=== PATIENT | female | born 1945 | race Caucasian/White ===

== ENCOUNTER → 2019-01-28 13:13 | Outpatient (CLI) | payer MEDICARE, BC, SELFPAY ==
--- NOTE | 2019-01-28 13:18 | CT_ITS ---
CT abdomen pelvis wo/w con CLINICAL INDICATION: Recurrent urinary tract infections ITS.REASON: chronic UTI ORDERING PHYSICIAN: Gomez Zapien MD PATIENT AGE: 73 years COMPARISON: 04/02/2015 TECHNIQUE: Axial images obtained without and with contrast with sagittal and coronal reformats. All CT scans at the facility use one or more dose reduction, viz: automated exposure control, ma/kV adjustment per patient size (including targeted exams where dose is matched to indication, i.e. head), or iterative reconstruction technique. PROCEDURE: Oral Contrast: None IV Contrast: 75 mL's Optiray 350. FINDINGS: Lower thorax: No acute finding The liver, gallbladder, spleen, adrenal glands, and pancreas have an unremarkable appearance. No renal or ureteral calculi. No hydronephrosis or renal mass. The urinary bladder has an unremarkable appearance. No evidence of appendicitis, intestinal obstruction, or free air or diverticulitis. There is a mild amount of retained colonic feces. No pelvic mass or abnormal fluid collection or focal inflammatory changes. There is a small central pelvic calcification just posterior to the symphysis pubis which is nonspecific and may be due to phlebolith. No acute bony findings. IMPRESSION: Unremarkable CT abdomen pelvis, No acute abdominal pelvic findings. No renal or ureteral calculi
[2019-01-28 13:44] LABS: Blood Urea Nitrogen 12 mg/dL (7-18); Creatinine,Serum 1.03 mg/dL (0.55-1.02); Estimated Glomerular Filt Rate 53 ml/min (>60); GFR (African American) 64 ML/MIN (>60)
== END ==
PROVIDERS: PCP Family Medicine; Visit Provider Urology
DX: N30.20 Other chronic cystitis without hematuria (principal)
CPT/HCPCS: 36415; 74178; 82565; 84520; Q9967

== ENCOUNTER → 2019-10-10 08:58 | Outpatient (CLI) | payer MEDICARE, BC, SELFPAY ==
--- NOTE | 2019-10-10 09:00 | US_ITS ---
PROCEDURE: US BREAST LT COMPLETE CLINICAL INDICATION: LT BREAST LUMP COMPARISON: No exams were available for comparison FINDINGS: There is a palpable nodule reported at 6 o'clock. Recent mammograms are at an outside institution and unavailable for comparison. There is a small cyst at 12 o'clock at 3 mm. The remaining breast has an unremarkable appearance. Specifically, no cystic or solid lesions are present at the area of palpable concern. IMPRESSION: Small cyst at 12 o'clock otherwise negative left breast ultrasound. If there is indeed a palpable nodule then, would recommend mammographic correlation Dictated by: Maulik Kay MD 10/10/2019 10:07 Electronically signed by Maulik Kay MD in [place] 10/10/2019 10:07
== END ==
PROVIDERS: PCP Family Medicine; Visit Provider Nurse Practitioner Family
DX: D24.2 Benign neoplasm of left breast (principal)
CPT/HCPCS: 76641

== ENCOUNTER → 2019-11-05 14:17 | Outpatient (CLI) | payer MEDICARE, BC, SELFPAY ==
--- NOTE | 2019-11-05 14:19 | MM_ITS ---
PROCEDURE: MM DIG MAMM DX UNILAT LT CAD CLINICAL INDICATION: LT BREAST LUMP COMPARISON: US BREAST LT COMPLETE from 10/10/2019 TECHNIQUE: Standard images performed along with spot compression views FINDINGS: The report is delayed waiting on old films for comparison which are not made available as of the reading date. Patient reports a palpable abnormality at the 6 o'clock region of the left breast. There is average fibroglandular tissue. No malignant appearing mass or malignant-appearing microcalcification is evident. There are benign-appearing calcifications. Specifically, no discrete mass evident at the area of palpable concern. A negative mammogram and negative ultrasound does not exclude the possibility of malignancy. Any true palpable nodule should be managed on a clinical basis IMPRESSION: No evidence of malignancy. Benign calcifications BI-RAD Category: 2 Benign Finding(s) FOLLOW-UP: 1YR 1 Year Follow-up Please correlate with physical exam. Palpable nodule should be managed on a clinical basis. (A letter has been sent to the patient regarding results of the study.) Dictated by: Maulik Kay MD 11/13/2019 11:10 Electronically signed by Maulik Kay MD in [place] 11/13/2019 11:10
== END ==
PROVIDERS: PCP Family Medicine; Visit Provider Family Medicine
DX: N63.23 Unspecified lump in the left breast, lower outer quadrant
CPT/HCPCS: 77065

== ENCOUNTER → 2020-11-11 15:40 | Outpatient (CLI) | payer MEDICARE, BC, SELFPAY ==
--- NOTE | 2020-11-11 15:43 | MM_ITS ---
PROCEDURE: MM DIG SCREENING MAMM BI W/CAD Referring Doctor: Sada Bejarano Patient Age:74Y CLINICAL INDICATION: SCREENING No hormonesno no complaints negative family history COMPARISON: MG MG SCREENING MAMMOGRAM from 12/18/2008 MG MG SCREENING MAMMOGRAM from 01/13/2011 MG MG SCREENING MAMMOGRAM from 01/19/2012 MG MG SCREENING MAMMOGRAM from 02/07/2013 MG MG SCREENING MAMMOGRAM from 02/06/2014 MG MG SCREENING MAMMOGRAM from 02/08/2015 MG MG SCREENING MAMMOGRAM from 02/11/2016 MG MG SCREENING MAMMOGRAM from 02/12/2017 MG MG SCREENING WAYLON MAMMOGRAM from 02/15/2018 MG MG SCREENING WAYLON MAMMOGRAM from 02/21/2019 US US BREAST LT COMPLETE from 10/10/2019 MG MM DIG MAMM DX UNILAT LT CAD from 11/05/2019 TECHNIQUE: Standard CC and MLO images were obtained. R2 CAD reviewed. Bilateral digital breast tomosynthesis included. FINDINGS: Moderate breast density,. Mild asymmetry. No suspicious calcifications Left breast-suggestion/question subtle architectural changes the superior breast 11 o'clock position. This may reflect old scar but I would suggest additional spot views and ultrasound to further evaluate since it is more evident than on 2016 2017 studies.. (Cc, and MLO spot views along with full 90 degree left breast recommended) I would note that an ultrasound spot views right breast were performed October 2019 to evaluate an palpable area at the medial breast of but but this palpable areas seem to be inferior to the current region.. Right breast. No new areas of concern Follow-up 1 year on right IMPRESSION: 1. Left breast. Although most likely stable I would question minor area of architectural irregularity at 11o'clock region of left breast. Could reflect area minimal old scarring noting similar area seen previous studies , But warrants additional views since it is very slightly more evident today. Recommend ultrasound and spot views left breast 2..Right breast-no new areas of concern follow-up 1 year BI-RAD Category: 0 Need Additional Imaging Evaluation FOLLOW-UP: IMM Immediate Follow-up Recommended (A letter has been sent to the patient regarding results of the study.) Dictated by: Abhi Beltran MD 11/15/2020 10:04 Abhi Beltran MD in [place] 11/15/2020 10:05
== END ==
PROVIDERS: PCP Family Medicine; Visit Provider Family Medicine
DX: Z12.31 Encounter for screening mammogram for malignant neoplasm of breast (principal)
CPT/HCPCS: 77063; 77067

== ENCOUNTER → 2020-12-01 13:40 | Outpatient (CLI) | payer MEDICARE, BC, SELFPAY ==
--- NOTE | 2020-12-01 13:52 | MM_ITS ---
PROCEDURE: MM DIG MAMM DX UNILAT LT CAD Digital Breast Tomosynthesis Included CLINICAL INDICATION: ABN MAMM COMPARISON: MG MG SCREENING WAYLON MAMMOGRAM from 02/21/2019 MG MM DIG MAMM DX UNILAT LT CAD from 11/05/2019 MG MM DIG SCREENING MAMM BI W/CAD from 11/11/2020 US US BREAST LT COMPLETE from 12/01/2020 TECHNIQUE: Standard CC and MLO images and 3D Tomosynthesis was obtained. R2 CAD reviewed. One CC views were obtained along with a 90 degree lateral view FINDINGS: The additional views lessen concern of the questionable architectural distortion left breast. This appears to be simply an area of asymmetric glandular elements with no suspicious characteristics. Ultrasound performed the same date showed a small solid nodular lesion near the nipple probably a fibroadenoma. Again noted are 2 benign-appearing microcalcifications inferior portion of the breast. IMPRESSION: Essentially negative problem solving views and in addition there is no definite ultrasound correlation of a suspicious abnormality. BI-RAD Category: 2 Benign Finding(s) FOLLOW-UP: 1YR 1 Year Follow-up (A letter has been sent to the patient regarding results of the study.) Dictated by: Dr. Ephraim Moses MD 12/14/2020 08:01 Dr. Ephraim Moses MD in [place] 12/14/2020 08:01
--- NOTE | 2020-12-01 13:53 | US_ITS ---
PROCEDURE: US BREAST LT COMPLETE CLINICAL INDICATION: ABN MAMM COMPARISON: US US BREAST LT COMPLETE from 10/10/2019 FINDINGS: Diffuse slightly heterogenic echogenicity is seen throughout the breast. There is a small solid lesion with homogeneous echogenicity measuring 0.5 x 0.2 cm 7 o'clock position near the nipple and likely a small fibroadenoma. There is a normal appearing node in the axilla. IMPRESSION: Essentially unremarkable ultrasound with no correlation to the suspected architectural distortion and recommend the patient continue with yearly screening mammography Dictated by: Dr. Ephraim Moses MD 12/14/2020 08:03 Dr. Ephraim Moses MD in [place] 12/14/2020 08:03
== END ==
PROVIDERS: PCP Family Medicine; Visit Provider Family Medicine
DX: R92.8 Other abnormal and inconclusive findings on diagnostic imaging of breast (principal)
CPT/HCPCS: 76641; 77061; 77065; G0279

== ENCOUNTER → 2021-12-05 10:12 | Outpatient (CLI) | payer MEDICARE, BC, SELFPAY ==
--- NOTE | 2021-12-05 10:15 | MM_ITS ---
PROCEDURE INFORMATION: Exam: MG Bilateral Screening 3D Mammography Exam date and time: 12/05/2021 10:15 AM Age: 75 years old Clinical indication: Encounter for screening mammogram for malignant neoplasm of breast TECHNIQUE: Imaging protocol: Bilateral screening tomosynthesis and 2D mammography including computer-aided detection (CAD) when performed. COMPARISON: 1. MG MM DIG MAMM DX UNILAT LT CAD 12/01/2020 1:58 PM 2. MG MM DIG SCREENING MAMM BI W/CAD 11/11/2020 3:51 PM 3. MG MM DIG MAMM DX UNILAT LT CAD 11/05/2019 2:42 PM FINDINGS: MAMMOGRAPHY: Breast composition: There are scattered areas of fibroglandular density. Mass: No suspicious masses. Architectural distortion: No suspicious distortion. Calcifications: No suspicious calcifications. Asymmetric density: None. Skin thickening: None. Axillary adenopathy: None. IMPRESSION: 1. No mammographic evidence of malignancy. Annual screening is recommended unless otherwise clinically indicated. ASSESSMENT: BI-RADS Category 2: Benign
== END ==
PROVIDERS: PCP Family Medicine; Visit Provider Family Medicine
DX: Z12.31 Encounter for screening mammogram for malignant neoplasm of breast (principal)
CPT/HCPCS: 77063; 77067

== ENCOUNTER → 2023-01-16 06:12 | Outpatient (CLI) | payer MEDICARE, BC, SELFPAY ==
--- NOTE | 2023-01-16 | CA_ITS ---
APPROVED REPORT Exam: Pharmacologic Technologist: ,, Ht: 5 ft 3 in Wt: 153 lbs BSA: 1.73 m2 HR: 63 bpm BP: 173/71 mmHg Medical History Medications: Amlodipine,,,,, Levothyroxine,,,,, Aspirin,,,,, Atenolol,,,,, Simvastatin,,,,, Losartan,,,,, Calcium,,,,, Norvasc,,,,, Protonix,,,,, Carbonate,,,,, Stress Test Details Test: LEXISCAN Reason for pharmacologic stress test: physical limitation. HR Resting HR: 75 bpm Max Heart Rate (APMHR): 143.045883 bpm Max HR Achieved: 96 bpm Target HR (85% APMHR): 121.733910 bpm % of APMHR: 67.13 Recovery HR: 82 bpm BP Resting BP: 173.0/71.0 mmHg Max BP: 173.0/71.0 mmHg Recovery BP: 150.0/65.0 mmHg ECG Resting ECG: NSR Clinical Reason for Termination: Completed Protocol Exercise duration: 04:01 min Highest Stage Achieved: Exercise capacity: 1.0 METs Stress ECG Conclusion Symptoms: none Arrhythmias/Ectopy: none ST-T Changes: <1.5mm ST Segment changes Conclusion: Non-Diagnostic Test Summary REST . . . . . . . Resting REST 00:36 . . 75 . 173/ 71 . . Stage 1 01:00 . . 89 . . . . Stage 2 01:00 . . 94 . 152/ 70 . . Stage 3 01:00 . . 92 . 148/ 66 . . Stage 4 01:00 . . 88 . 141/ 62 . . Stage 4 01:01 . . 87 . 141/ 62 . Stop exercise at 04:01 RECOVERY 01:00 . . 83 . . . . RECOVERY 02:00 . . 82 . 150/ 65 . . RECOVERY 02:04 . . 82 . 150/ 65 . . Electronically signed by : Tj Awan MD 01/16/2023 21:16:18
--- NOTE | 2023-01-16 06:12 | NM_ITS ---
APPROVED REPORT Exam: Nuclear Stress Test Indication: Chest pain, SOB, HTN, High cholesterol Patient Location: Outpatient Stress Tech: Josie Toro [place] Tech:Patt Walker, ARRT, RT (R)(N) Ht: 5 ft 3 in Wt: 150 lbs Bra Size: 40C HR: 75 bpm BP: 173/71 mmHg BSA: 1.71 m2 TID: 1.20 BMI: 26.5 History: Chest pain, SOB, HTN, High cholesterol Procedure: Patient received 0.4 mg of intravenous Lexiscan, resting heart rate 75 bpm, resting blood pressure 173/71 mmHg, with Lexiscan maximum heart rate achieved was 96 bpm which is Less than 85 % of the maximum predicted heart rate and blood pressure was 173/71 mmHg. With Lexiscan, patient denied any complaint of chest pain. Electrocardiogram Resting electrocardiogram showed sinus rhythm with Lexiscan there is less than 1.[address] segment depression noted from the baseline EKG. The EKG portion of the Lexiscan is nondiagnostic. Cardiac Stress and Resting SPECT Images: Cardiac Stress and Resting SPECT images were obtained using technetium 99m Myoview 29.6 mCi stress and 10.28 mCi at rest. Gated SPECT analysis of segmental wall motion and calculation of the ejection fraction also done. Prone images were also obtained. Cardiac stress and rest respectively show uniform myocardial activity without segmental perfusion abnormality, computer derived ejection fraction is 53% with no regional wall motion abnormality, right ventricle is normal size and contractility. Conclusion: 1. The EKG portion of the Lexiscan is nondiagnostic. 2. No scintigraphic evidence of reversible ischemia seen, computer derived ejection fraction 53% with no regional wall motion abnormality, right ventricle is normal size and contractility. 3. Normal Lexiscan Myoview study. Electronically signed by : Tj Awan MD 01/16/2023 21:25:24
--- NOTE | 2023-01-16 06:12 | CA_ITS ---
APPROVED REPORT EXAM: Comprehensive 2D, Doppler, and color-flow Echocardiogram Padded Products Inspector Trimmer: Erika Viramontes, RCS, RVS Ht: 5 ft 3 in Wt: 153lbs BSA: 1.73 BP: 181/73 mmHg Indications: CP, HLD, HTN, Hypothyroidism 2D Dimensions IVSd 0.74 cm LVEF (Visual) 54.40 % PWd 0.99 cm LA Volume 46.90 mL LVDd 4.88 cm LA Volume Index 27.10 mL/m2 (M/F) 16-34 LVDs 3.50 cm Aortic Root 2.55 cm Left Atrium 3.54 cm LVOT 1.68 cm (M/F) 1.5-2.5 M-Mode Dimensions RVDd 1.71 cm (0.9-2.6) LA Diam 3.12 cm (1.9-4.0) LVDd 4.71 cm (3.5-5.7) Ao Diam 2.73 cm (2.0-3.7) LVDs 3.14 cm (3.5-5.7) IVSd 1.07 cm (0.6-1.1) PWd 0.71 cm (0.6-1.1) EF (Teich) 62.00% EPSs 0.57 cm FS 33.30% EDV (Teich) 102.90 mL TAPSE 2.29 (<1.7) ESV (Teich) 39.10 mL LV Diastology E Decel Time 207.00 (160-240 msec) E/A Ratio 1.19 MED E' 8.70 (< 7 cm/sec) MED A' 8.20 cm/s E'/MED E' Ratio 10.97 (>14) LAT E' 5.60 (<10 cm/sec) LAT A' 8.30 cm/s E/LAT E' Ratio 17.04 (>14) Aortic Valve LVOT Max 107.00 (70-110 cm/s) LVOT VTI 24.14 cm AoV Peak Conor. 138.00 (50-130 cm/s) AO Peak GR. 7.70 mmHg AO Mean GR. 3.80 (<5 mmHg) AO VTI 32.14 (18-25 cm) MARSHA (VTI) 1.66 (2.5-4.5 cm2) Mitral Valve MV A Velocity 80.00 (40-130 cm/s) E/A Ratio 1.19 MV Decel. Time 207.00 (160-240 ms) MV PHT 50.00 ms Pulmonary Valve PV Peak Velocity 93.00 (50-150 cm/s) Tricuspid Valve TR P. Velocity 279.00 cm/s RAP Estimate 10.00 mmHg RVSP 41.10 mmHg Left Ventricle Left atrium is mildly enlarged, left ventricle is normal size mild qualitative concentric left ventricular hypertrophy, estimated ejection fraction 55% with no regional wall motion abnormality, diastolic parameters are inconclusive. Right Ventricle Right atrium and right ventricular normal size and contractility. Aortic Valve Aortic valve is minimally thickened and fibrosed there is no aortic stenosis or significant aortic insufficiency. Mitral Valve Mitral valve is grossly normal, there is trace mitral regurgitation. Tricuspid Valve Tricuspid valve is grossly normal, there is trace tricuspid regurgitation, calculated right ventricular systolic pressure is 38 mmHg. Pulmonic Valve Pulmonic valve is poorly visualized. Great Vessels Aortic root is normal size. Inferior vena cava is normal size with normal inspiratory collapse. Pericardium No significant pericardial effusion noted. Conclusion 1. Mildly enlarged left atrium, normal left ventricular size, estimated ejection fraction 55% with no regional wall motion abnormality, diastolic parameters are inconclusive. 2. Trace mitral and tricuspid regurgitation, calculated right ventricular systolic pressure is 38 mmHg. 3. No significant pericardial effusion. 4. Inferior vena cava is normal size with normal inspiratory collapse. Electronically signed by : Tj Awan MD 01/17/2023 06:09:29
--- NOTE | 2023-01-16 08:20 | HMH.ITSHM ---
Current Home Medications as stated by this patient Shana Dick or sales and service representative. []SIMVASTATIN PANTOPRAZOLE LOSARTAN LEVOTHYROXINE CALCIUM ATENOLOL AMLODIPINE
== END ==
PROVIDERS: PCP Family Medicine; Visit Provider Physician Assistant
DX: R07.89 Other chest pain (principal); R94.31 Abnormal electrocardiogram [ECG] [EKG]
CPT/HCPCS: 78452; 93017; 93306; A9502; J2785

== ENCOUNTER → 2023-02-20 10:16 | Outpatient (CLI) | payer MEDICARE, BC, SELFPAY ==
--- NOTE | 2023-02-20 10:24 | MM_ITS ---
PROCEDURE INFORMATION: Exam: MG Bilateral Screening 3D Mammography Exam date and time: 02/20/2023 10:20 AM Age: 77 years old Clinical indication: Screening. No family history of breast cancer. TECHNIQUE: Imaging protocol: Bilateral Screening tomosynthesis and 2D mammography including computer-aided detection (CAD) when performed. COMPARISON: 1. MG MM DIG SCREENING MAMM BI W/CAD 12/05/2021 10:15 AM 2. MG MM DIG MAMM DX UNILAT LT CAD 12/01/2020 1:58 PM 3. MG MM DIG SCREENING MAMM BI W/CAD 11/11/2020 3:51 PM 4. MG MM DIG MAMM DX UNILAT LT CAD 11/05/2019 2:42 PM FINDINGS: MAMMOGRAPHY: Breast composition: There are scattered areas of fibroglandular density. Mass: No suspicious mass. Architectural distortion: None. Calcifications: No suspicious calcifications. Asymmetric density: None. Skin thickening: None. Axillary adenopathy: None. IMPRESSION: No mammographic evidence of malignancy. Annual screening is recommended unless otherwise clinically indicated. ASSESSMENT: BI-RADS Category 1: Negative
== END ==
PROVIDERS: PCP Family Medicine; Visit Provider Family Medicine
DX: Z12.31 Encounter for screening mammogram for malignant neoplasm of breast (principal)
CPT/HCPCS: 77063; 77067

== ENCOUNTER 2023-11-27 08:28 | Outpatient (CLI) | payer MEDICARE, BC, SELFPAY ==
--- NOTE | 2023-11-27 08:35 | CT_ITS ---
FINAL REPORT TECHNIQUE: Axial CT images of the abdomen were obtained with IV contrast only. Coronal and sagittal reformatted images were also obtained. This study was performed with techniques to keep radiation doses as low as reasonably achievable (ALARA). Individualized dose reduction techniques using automated exposure control or adjustment of mA and/or kV according to the patient's size were employed. CLINICAL HISTORY: ABD PAIN,RUQ PAIN,NAUSEA COMPARISON: 01/28/2019 FINDINGS: There is mild atelectasis and/or scarring in the lung bases. The liver has an unremarkable appearance, without evidence of mass. There is mild nonspecific gallbladder wall thickening, without definite stones identified. There is no evidence of biliary ductal dilatation. The pancreas appears normal. The spleen size is within normal limits. There is no evidence of renal mass or hydronephrosis. There is a less than 1 cm in size cyst present in the left kidney. There is no evidence of adenopathy. No abnormal fluid collection is seen. No localized inflammatory processes identified. IMPRESSION: Mild nonspecific gallbladder wall thickening without definite stones identified. Would recommend right upper quadrant ultrasound, and/or hepatobiliary nuclear medicine scan for further evaluation. Reviewed, Interpreted and Dictated by Randall Maciel III, MD Transcribed by Zita Rae Authenticated and [facility]
[2023-11-27 09:01] LABS: Blood Urea Nitrogen 16 mg/dl (7-17); Estimated Glomerular Filt Rate 54 ml/min (>60); GFR (African American) 65 ML/MIN (>60)
[2023-11-27] MEDS: BARIUM SULFATE(READI-CAT2);450ML BOTTLE 450 ML PO (10:38)
[2023-11-27] MEDS: IOPAMIDOL-370 (76%);100ML BOTTLE 75 ML IV (10:38)
[2023-11-27] MEDS: SODIUM CHLORIDE 0.9% 10ML SYR (RAD ONLY) 10 ML IV (10:38)
== END 2023-11-27 23:59 ==
LOC: RAD 08:28
PROVIDERS: PCP Family Medicine; Visit Provider Family Medicine
DX: R10.10 Upper abdominal pain, unspecified (principal); R11.0 Nausea
CPT/HCPCS: 36415; 74160; 82565; 84520; Q9967

== ENCOUNTER 2024-02-13 14:42 | Outpatient (CLI) | payer MEDICARE, BC, SELFPAY ==
--- NOTE | 2024-02-13 15:00 | MM_ITS ---
PROCEDURE INFORMATION: Exam: MG Bilateral Screening 3D Mammography Exam date and time: 02/13/2024 2:51 PM Age: 78 years old Clinical indication: Screening mammogram TECHNIQUE: Imaging protocol: Bilateral Screening tomosynthesis and 2D mammography including computer-aided detection (CAD) when performed. COMPARISON: 1. MG MM DIG SCREENING MAMM BI W/CAD 02/20/2023 10:20 AM 2. MG MM DIG SCREENING MAMM BI W/CAD 12/05/2021 10:15 AM 3. MG MM DIG MAMM DX UNILAT LT CAD 12/01/2020 1:58 PM 4. MG MM DIG SCREENING MAMM BI W/CAD 11/11/2020 3:51 PM FINDINGS: MAMMOGRAPHY: Breast composition: There are scattered areas of fibroglandular density. Mass: None. Architectural distortion: No new or suspicious architectural distortion. Calcifications: No new or suspicious calcifications are present Asymmetric density: No new or suspicious asymmetric density is present Skin thickening: None. Axillary adenopathy: None. IMPRESSION: No mammographic evidence of malignancy. Recommend annual screening mammography unless otherwise clinically indicated. ASSESSMENT: BI-RADS category 1: Negative.
== END 2024-02-13 23:59 ==
PROVIDERS: PCP Family Medicine; Visit Provider Family Medicine
DX: Z12.31 Encounter for screening mammogram for malignant neoplasm of breast (principal)
CPT/HCPCS: 77063; 77067

== ENCOUNTER 2024-06-11 09:19 | Outpatient (CLI) | payer MEDICARE, BC, SELFPAY ==
--- NOTE | 2024-06-11 09:22 | US_ITS ---
FINAL REPORT TECHNIQUE: Sonographic images of the abdomen were obtained in all four quadrants. CLINICAL HISTORY: PAIN COMPARISON: None FINDINGS: LIVER: Homogeneous. No focal hepatic lesion or intrahepatic biliary dilatation. GALLBLADDER: No gallstones. No pericholecystic fluid collection or gallbladder wall thickening. The common duct measures 4 mm. This is within normal limits for age. PANCREAS: Unremarkable. RIGHT KIDNEY: 9.3 cm. No hydronephrosis, mass or stone. LEFT KIDNEY: 9.6 cm. No hydronephrosis, mass or stone. SPLEEN: 8.8 cm. No focal splenic lesion. AORTA/IVC: No abdominal aortic aneurysm. Visualized IVC within normal limits. OTHER: No ascites. IMPRESSION: Unremarkable ultrasound of the abdomen. Reviewed, Interpreted and Dictated by Randi García MD Transcribed by Zita Rae Authenticated and [facility]
== END 2024-06-11 23:59 | disposition home or self-care (01) ==
LOC: RAD 09:19
PROVIDERS: PCP Family Medicine; Visit Provider Family Medicine
DX: R10.9 Unspecified abdominal pain (principal)
CPT/HCPCS: 76700

== ENCOUNTER 2025-03-16 15:16 | Outpatient (CLI) | payer MEDICARE, BC, SELFPAY ==
--- NOTE | 2025-03-16 15:19 | MM_ITS ---
PROCEDURE INFORMATION: Exam: MG Bilateral Screening 3D Mammography Exam date and time: 03/16/2025 3:33 PM Age: 79 years old Clinical indication: Screening. No family history of breast cancer. TECHNIQUE: Imaging protocol: Bilateral Screening tomosynthesis and 2D mammography including computer-aided detection (CAD) when performed. COMPARISON: 1. MG MM DIG SCREENING MAMM BI W/CAD 02/13/2024 2:51 PM 2. MG MM DIG SCREENING MAMM BI W/CAD 02/20/2023 10:20 AM 3. MG MM DIG SCREENING MAMM BI W/CAD 12/05/2021 10:15 AM 4. MG MM DIG MAMM DX UNILAT LT CAD 12/01/2020 1:58 PM FINDINGS: MAMMOGRAPHY: Breast composition: There are scattered areas of fibroglandular density. Mass: None. Architectural distortion: None. Calcifications: No suspicious calcifications. Asymmetric density: None. Skin thickening: None. Axillary adenopathy: None. IMPRESSION: No mammographic evidence of malignancy. Annual screening is recommended unless otherwise clinically indicated. ASSESSMENT: BI-RADS Category 1: Negative.
--- OUTSIDE RECORDS SUMMARY | 2025-03-16 15:19 | XMS_ITS ---
Author Organization Unknown [facility] Start Date Provider Encounter for Check-up [id number] BREANN Bejarano
== END 2025-03-16 23:59 | disposition home or self-care (01) ==
LOC: RAD 15:17
PROVIDERS: PCP Family Medicine; Visit Provider Family Medicine
DX: Z12.31 Encounter for screening mammogram for malignant neoplasm of breast (principal)
CPT/HCPCS: 77063; 77067

== ENCOUNTER 2025-06-11 10:16 | Day surgery (SDC) | payer MEDICARE, BC, SELFPAY ==
[2025-06-09 14:25] VITALS: BMI 26.2
--- NOTE | 2025-06-11 10:30 | EXP.HP ---
History of Present Illness *Admission Date: 06/11/25 *History of present illness: Mrs. Dick is a 79-year-old female who is here for surveillance colonoscopy secondary to a personal history of adenomatous colon polyps. The patient's last colonoscopy in July 2019 (with me) revealed 4 polyps (tubular adenomas x 2, small serrated adenoma x 1 and hyperplastic polyp x 1) which were removed. The examination is deemed medically necessary for surveillance colonoscopy. The patient has been seen, interviewed and examined prior to the procedure by both myself and the anesthesia provider. [facility] Disclaimer: The information contained in this section may have been updated after the patient was seen, as this information can be updated by other users. Medical History Hypothyroid Kidney failure Hypertension Surgical History (Updated 06/11/25 @ 10:42 by Nataliia Sheriff RN) Colonoscopy planned Family History Mother CHF (congestive heart failure) Social History Smoking Status: Never smoker alcohol intake: never substance use type: denies use current occupational status: retired Travel in the last 8 weeks?: None household members: spouse housing: house current occupational exposures/hazards: No caffeine: Yes Have you lived/traveled outside [place] in past 30 days?: No Contact w/someone who lives/traveled outside US past 30 days?: No Exposure to someone with infectious disease in past 14 days?: No Do you have a fever (greater than 100.4 F or 38 C)?: No Have you tested positive for COVID-19?: No Exposed to someone with COVID-19 in past 14 days?: No Do you have a sore throat?: No Do you have a cough?: No Do you have any weakness?: No Do you have any diarrhea?: No Are you experiencing any unusual bleeding?: No Do you have any muscle aches/pain?: No Do you have any abdominal pain?: No Are you experiencing loss of taste or smell?: No Other Medical History Have you received the Flu Vaccine for this season: Yes Have you received the Pneumonia Vaccine: Yes Review of Systems Review of Systems Review of systems (narrative): Negative *Cardiovascular Comments: Negative *Gastrointestinal Comments: Negative *Genitourinary Comments: Negative *Musculoskeletal Comments: Negative *Neurologic Comments: Negative Meds Home Medications and Allergies Home Medications ?Medication ?Instructions ?Recorded ?Confirmed ?Type atenolol 25 mg tablet 25 mg PO BID bp 09/10/18 06/09/25 History levothyroxine 75 mcg tablet 75 mcg PO DAILY thyroid 09/10/18 06/09/25 History (Levo-T) amlodipine 5 mg tablet 5 mg PO DAILY #30 tabs 01/04/23 06/09/25 Rx losartan 50 mg tablet 50 mg PO DAILY 01/04/23 06/09/25 History simvastatin 40 mg tablet 20 mg PO QODHS Cholesterol 01/04/23 06/09/25 History sodium,potassium,mag sulfates 17.5 See Rx Instructions PO .COMPLEX 06/01/25 06/09/25 Rx gram-3.13 gram-1.6 gram oral soln #354 mL (Suprep Bowel Prep Kit) calcium 650 mg-vitamin D3 12.5 1 tab PO BID 06/09/25 06/09/25 History mcg-vitamin K 40 mcg chewable tablet (Viactiv) multivitamin 2 tab PO DAILY 06/09/25 06/09/25 History New Prescriptions to Start Prescriptions: Allergies Allergy/AdvReac Type Severity Reaction Status Date / Time Sulfa (Sulfonamide Allergy Vomiting Verified 06/09/25 13:50 Antibiotics) From Codeine Sulfate Allergy Unknown Dizziness Uncoded 06/09/25 13:50 Exam Data for Last 24 hours I & O for Last 24 hours: Intake & Output 06/08/25 06/09/25 06/10/25 06/11/25 23:59 23:59 23:59 23:59 Weight 148 lb *Routine HEENT Exam Head: Present normocephalic Eye: Present EOMI and PERRL ENT: Present mucous membranes moist *Routine Neck Exam Neck: Present supple *Routine Respiratory Exam Respiratory: Present CTA bilaterally *Routine Cardiovascular Exam Cardiovascular: Present RRR *Routine Abdominal Exam Abdominal: Present soft and normoactive bowel sounds; Absent tenderness *Routine Rectal Exam Rectal:: deferred *Routine Genitalia Exam Genitalia:: deferred *Routine Extremities Exam Extremities: Absent cyanosis, clubbing or edema *Routine Skin Exam Skin: Present warm; Absent rash *Routine Neurological Exam Neurological: Present alert and oriented X3 Assessment and Plan *Assessment and plan (1) Personal history of adenomatous and serrated colon polyps: Status: Acute Category: Medical Code(s): Z86.0101 - Personal history of adenomatous and serrated colon polyps Plan A/P: 1. Personal history of adenomatous colon polyps is the preprocedural diagnosis. The patient will be anesthetized/sedated using MAC sedation. The patient has been seen and examined. Cardiac and lung assessment prior to the examination is stable. Proceed with planned surveillance colonoscopy.
--- NOTE | 2025-06-11 10:33 | HMH.PROCNOTE ---
[facility] Procedure Note Date: 06/11/25 Time: 12:08 Procedure Note:: Colonoscopy Procedure Report: Colonoscopy with cold snare polypectomy Endoscopist: Mina Moore II, MD Referring physician: Haris Bejarano M.D. Date of Procedure: June 11, 2025 Equipment: Olympus 190 variable stiffness pediatric colonoscope Sedation: MAC sedation Indication: Mrs. Dick is a 79-year-old female who is here for follow-up surveillance colonoscopy. She did have a colonoscopy with co in July 2019 and had 4 polyps (tubular adenomas x 2/small serrated adenoma x 1/hyperplastic polyp x 1) removed. She did have colonoscopies in 2000 and again in 2011 in [place] (Dr. Korey Mills). The patient reports no abdominal pain, weight loss, change in her bowel habits or rectal bleeding. She reports no family history of colon cancer. Procedure: Prior to the procedure, a history and physical exam was performed, and patient's medications and allergies were reviewed. The risks, benefits and alternatives of the sedation and procedure were discussed with the patient. All questions were answered and informed consent was obtained. The patient was brought to the procedure room. Patient identification and proposed procedure were verified by the physician and the nurse. The patient was placed in a left lateral decubitus position and the scope was passed under direct vision. Throughout the procedure, the patient's blood pressure, pulse, and oxygen saturations were monitored continuously. The colonoscopy was accomplished without difficulty. The patient tolerated the procedure well. Findings: On digital rectal examination there was normal rectal tone. There were no external hemorrhoids. The colonoscope was introduced through the anal canal to the rectum and advanced to the cecum. The ileocecal valve and appendiceal orifice were identified. The scope was advanced a short distance into the ileum which appeared grossly normal. The scope was then withdrawn into the colon. There was a single 3 to 4 mm polyp in the transverse colon removed via cold snare polypectomy. The remaining cecum, ascending, transverse, descending, sigmoid and rectum were grossly normal. There were no other mucosal abnormalities identified. Upon retroflexion within the rectum there were small grade 1 internal hemorrhoids. The preparation was excellent throughout with [place] Preparation Score of 9. The cecal time was 11 minutes. Impression: 1. Diminutive 3 to 4 mm transverse colon polyp Plan: I will follow-up the polyp histology and the patient will not require any further preventive/surveillance colonoscopy.
[2025-06-11 10:43] VITALS: BP 115/44; PULSE 64; RESP 16; TEMP 36.2; O2SAT 97
--- NOTE | 2025-06-11 10:50 | P.PNANES_ITS ---
[facility] Disclaimer: The information contained in this section may have been updated after the patient was seen, as this information can be updated by other users. Medical History Hypothyroid Kidney failure Hypertension Surgical History (Updated 06/11/25 @ 10:42 by Nataliia Sheriff RN) Colonoscopy planned Family History Mother CHF (congestive heart failure) Social History Smoking Status: Never smoker alcohol intake: never substance use type: denies use current occupational status: retired Travel in the last 8 weeks?: None household members: spouse housing: house current occupational exposures/hazards: No caffeine: Yes Have you lived/traveled outside [place] in past 30 days?: No Contact w/someone who lives/traveled outside [place] past 30 days?: No Exposure to someone with infectious disease in past 14 days?: No Do you have a fever (greater than 100.4 F or 38 C)?: No Have you tested positive for COVID-19?: No Exposed to someone with COVID-19 in past 14 days?: No Do you have a sore throat?: No Do you have a cough?: No Do you have any weakness?: No Do you have any diarrhea?: No Are you experiencing any unusual bleeding?: No Do you have any muscle aches/pain?: No Do you have any abdominal pain?: No Are you experiencing loss of taste or smell?: No [facility] Anesthesia Checklist Patient Identification Patient Identification: Arm Band and Verbal (Name & ) Structural Data Admitted From: Home Planned Operative Procedure/s: colonoscopy Consent for Planned Operative Procedure(s) Verified: Yes Verified Documents: Surgical Consent NPO Status Verified Time NPO: 00:00 Chart Verification Results Verified: None Additional verifications Anesthesia Reactions: No Hx Blood Transfusions: No Blood Transfusion Reaction: No Airway Assessment Mallampati Score:: Class II C-Spine Mobility Assessed: Yes TMJ Mobility Assessed: Yes Dentition: Good Dentition Neurological Assessment Level of Consciousness: Awake, Alert and Appropriate Hx Seizures: No Numbness or tingling in extremities: No Anesthesia Plan Anesthesia Plan: Verified ASA Class: II Anesthesia Type: MAC
[2025-06-11] MEDS: LACTATED RINGERS 1000ML 1,000 ML 50 ML IV (11:00)
[2025-06-11 12:10] VITALS: BP 98/40; PULSE 68; RESP 16; TEMP 36.3; O2SAT 97
[2025-06-11 12:20] VITALS: BP 97/55; PULSE 74; RESP 18; O2SAT 97
[2025-06-11 12:30] VITALS: BP 125/44; PULSE 72; RESP 16; O2SAT 99
[2025-06-11 12:40] VITALS: BP 127/62; PULSE 66; RESP 16; TEMP 36.3; O2SAT 97
== END 2025-06-11 12:40 | disposition home or self-care (01) ==
PROVIDERS: PCP Family Medicine; Visit Provider Internal Medicine Gastroenterology
PROC: 0DJD8ZZ Inspection of Lower Intestinal Tract, Via Natural or Artificial Opening Endoscopic (ICD-10-PCS; CPT 45378; principal; 2025-06-11 12:00)
DX: K63.5 Polyp of colon (principal); Z86.0101 Personal history of adenomatous and serrated colon polyps; E03.9 Hypothyroidism, unspecified; I12.9 Hypertensive chronic kidney disease with stage 1 through stage 4 chronic kidney disease, or unspecified chronic kidney disease; N18.9 Chronic kidney disease, unspecified; Z88.5 Allergy status to narcotic agent; Z79.890 Hormone replacement therapy; Z79.899 Other long term (current) drug therapy
CPT/HCPCS: 45385; J2003; J2704; J7120

== ENCOUNTER 2025-09-09 15:58 | Outpatient (CLI) | payer MEDICARE, BC, SELFPAY ==
--- NOTE | 2025-09-09 16:00 | XR_ITS ---
FINAL REPORT CLINICAL HISTORY: left hip pain COMPARISON: None FINDINGS: AP and frog leg views of the left hip were obtained. There is no acute fracture or dislocation. Mild degenerative changes are noted in the bilateral hips. Soft tissues are unremarkable. IMPRESSION: Mild degenerative change, with no acute osseous abnormality of the left hip. Reviewed, Interpreted and Dictated by Randi García MD Transcribed by Zita Rae Authenticated and [facility]
--- NOTE | 2025-09-09 16:00 | XR_ITS ---
FINAL REPORT CLINICAL HISTORY: lower back pain COMPARISON: None FINDINGS: AP and lateral views of the lumbar spine were obtained. There is no prior exam for comparison. There is no acute fracture. There is grade 1 anterolisthesis of L4 on L5. Vertebral body height is preserved. Mild degenerative disc disease is noted. No acute paraspinal abnormality. IMPRESSION: Mild degenerative changes, with no acute osseous abnormality of the lumbar spine. Reviewed, Interpreted and Dictated by Randi García MD Transcribed by Zita Rae Authenticated and [facility]
[2025-09-09 17:12] LABS: Microscopic, Urine URINE MICROSCOPIC (MICROSCOPIC)
[2025-09-09 17:31] LABS: Bilirubin,Urine Negative (Negative); Color,Urine YELLOW (Yellow); Glucose,Urine (UA) Negative (Negative); Ketones,Urine Negative (Negative); Leukocyte Esterase,Urine 2+ (Negative); PH,Urine 6.5 (5.0-8.5); Protein,Urine Negative (Negative); Specific Gravity, Urine <= 1.005 (1.005-1.030); Urobilinogen,Urine 0.2 EU/dl (0.2)
[2025-09-09 19:37] LABS: Bacteria,Urine 3+ /lpf; Squamous Epithelial Cell,Urine Occasional #/hpf (0-5)
== END 2025-09-09 23:59 | disposition home or self-care (01) ==
LOC: RAD 15:59
PROVIDERS: PCP Nurse Practitioner Family; Visit Provider Nurse Practitioner Family
DX: M47.816 Spondylosis without myelopathy or radiculopathy, lumbar region (principal); M16.12 Unilateral primary osteoarthritis, left hip; N39.0 Urinary tract infection, site not specified
CPT/HCPCS: 72100; 73502; 81001; 87086; 87088

== ENCOUNTER 2025-09-18 10:25 | Outpatient (CLI) | payer MEDICARE, BC, SELFPAY | END 2025-09-18 23:59 | LOC: LAB.DROPOF 09-21 10:26 | PROVIDERS: PCP Nurse Practitioner Family; Visit Provider Nurse Practitioner Family | DX: N39.0 Urinary tract infection, site not specified (principal) | CPT/HCPCS: 87086 ==

== ENCOUNTER 2025-11-11 14:27 | Outpatient (CLI) | payer MEDICARE, BC, SELFPAY ==
[2025-11-11 18:07] LABS: Alanine Aminotransferase 20 U/L (12-78); Albumin Level 4.6 g/dl (3.5-5.0); Albumin/Globulin Ratio 1.7 (1.1-1.8); Alkaline Phosphatase 94 U/L (38-126); Anion Gap 11.8 mEq/L (5-15); Aspartate Amino Transferase 30 U/L (14-36); Bilirubin,Total 0.5 mg/dl (0.2-1.3); Blood Urea Nitrogen 22 mg/dl (7-17); Calcium 9.9 mg/dl (8.4-10.2); Carbon Dioxide 29 mmol/L (22.0-30.0); Chloride 101 mmol/L (98-107); Creatinine,Serum 1.10 mg/dl (0.52-1.04); Estimated Glomerular Filt Rate 48 ml/min (>60); GFR (African American) 58 ML/MIN (>60); Globulin 2.7 g/dL (1.3-3.2); Glucose 107 mg/dl (74-100); Magnesium 2.0 mg/dl (1.6-2.3); Potassium 4.8 mmoL/L (3.5-5.1); Sodium 137 mmol/L (136-145); Total Protein,Serum 7.3 g/dl (6.3-8.2)
[2025-11-11 18:13] LABS: C-Reactive Protein 0.9 mg/L (0-4)
[2025-11-11 18:26] LABS: Hematocrit 40.3 % (37.0-47.0); Hemoglobin 13.3 g/dL (12.2-16.2); Immature Granulocytes % 0.2 %; Mean Corpuscular HGB Conc 33.0 g/dL (31.8-35.4); Mean Corpuscular Hemoglobin 30.7 pg (27.0-31.2); Mean Corpuscular Volume 93.1 fl (81-99); Nucleated Red Blood Cells % 0 %; Platelet Count 195 K/mm3 (142-424); Red Blood Count 4.33 M/mm3 (4.20-5.40); Red Cell Distribution Width-SD 41.9 fL; White Blood Count 5.5 K/mm3 (4.8-10.8)
[2025-11-11 18:37] LABS: Thyroid Stimulating Hormone 1.27 uIU/mL (0.465-4.68)
[2025-11-11 18:56] LABS: Vitamin B12 674 pg/mL (239-931)
[2025-11-11 18:58] LABS: Hemoglobin A1C 5.3 % (4.0-6.0)
== END 2025-11-11 23:59 | disposition home or self-care (01) ==
LOC: LAB.DROPOF 11-12 10:39
PROVIDERS: PCP Nurse Practitioner Family; Visit Provider Nurse Practitioner Family
DX: R20.2 Paresthesia of skin (principal); R20.0 Anesthesia of skin; I10 Essential (primary) hypertension; R73.9 Hyperglycemia, unspecified; E03.9 Hypothyroidism, unspecified; E78.5 Hyperlipidemia, unspecified; N39.0 Urinary tract infection, site not specified
CPT/HCPCS: 80053; 82607; 83036; 83735; 84443; 85025; 86140; 87077; 87086